=== PATIENT | female | born 1980 | race Caucasian/White ===

== ENCOUNTER → 2018-10-19 | Outpatient (CLI) | payer BC | END | disposition home or self-care (01) | LOC: CVU 09:38 | PROVIDERS: ATTEND Internal Medicine Cardiovascular Disease | DX: R42 Dizziness and giddiness (principal); R00.2 Palpitations | CPT/HCPCS: 0399T; 93306 ==

== ENCOUNTER → 2020-02-14 | Outpatient (CLI) | payer BC ==
[~2020-02-14] MED LIST: FLUO20CA19 PO; LITH600C PO; MONT10TA6 PO; NORE0.3547 PO; OMEP-110 PO
[2020-02-14 15:17] LABS: BASOPHILS # (AUTO) 0.02 x10^3/uL (0-0.1); BASOPHILS % (AUTO) 0 % (0-1); EOSINOPHILS # (AUTO) 0.19 x10^3/uL (0-0.4); EOSINOPHILS % (AUTO) 3 % (1-7); LYMPHOCYTES # (AUTO) 2.43 x10^3/uL (1-3.4); LYMPHOCYTES % (AUTO) 33 % (22-44); MD NO; MEAN CORPUSCULAR HEMOGLOBIN 27.7 pg (27.0-34.8); MEAN CORPUSCULAR HGB CONC 32.1 g/dL (32.4-35.8); MEAN CORPUSCULAR VOLUME 86.3 fL (80-100); MEAN PLATELET VOLUME 8.3 fL (7.4-10.4); MONOCYTES # (AUTO) 0.46 x10^3/uL (0.2-0.8); MONOCYTES % (AUTO) 6 % (2-9); NEUTROPHILS # (AUTO) 4.31 x10^3/uL (1.8-6.8); NEUTROPHILS % (AUTO) 58 % (42-75); PLATELET COUNT 242 x10^3/uL (130-400); RED CELL DISTRIBUTION WIDTH 16.7 % (9.6-15.2)
[2020-02-14 15:29] LABS: ALANINE AMINOTRANSFERASE 20 U/L (12-78); ALBUMIN 3.6 g/dL (3.4-5.0); ANION GAP 3 mmol/L (5-15); CHLORIDE 109 mmol/L (98-107); CREATININE 0.89 mg/dL (0.55-1.02)
[2020-02-14 15:34] LABS: ALKALINE PHOSPHATASE 98 U/L (45-117); BILIRUBIN,TOTAL 0.3 mg/dL (0.2-1.0); TOTAL PROTEIN 7.7 g/dL (6.4-8.2)
== END | disposition home or self-care (01) ==
LOC: STAR 14:16
PROVIDERS: ATTEND Obstetrics & Gynecology
DX: Z01.818 Encounter for other preprocedural examination (principal); N80.9 Endometriosis, unspecified
CPT/HCPCS: 36415; 80053; 84703; 85025

== ENCOUNTER 2020-02-23 10:30 | Day surgery (SDC) | payer BC ==
[~2020-02-23] VITALS: Ht 165.1 cm; Wt 89.0 kg
[2020-02-23] MEDS ORDERED: CHLORHEXIDINE 15 ML UDC MM STA (10:44)
[2020-02-23] MEDS ORDERED: LACTATED RINGERS 1,000 ML IV SCH (10:44)
[2020-02-23] MEDS ORDERED: CHLORHEXIDINE 15 ML UDC ONE (10:55)
[2020-02-23 11:17] LABS: HCG UR SG 1.033 (1.003-1.030)
[2020-02-23] MEDS ORDERED: BUPIVACAINE/PF-EPI 0.25% 1:200K ONE (11:22)
[2020-02-23] MEDS ORDERED: SCOPOLAMINE 1MG PATCH TD ONE (12:21)
[2020-02-23] MEDS ORDERED: GABAPENTIN 300 MG CAPSULE ONE (12:21)
[2020-02-23] MEDS ORDERED: ACETAMINOPHEN 500 MG TABLET ONE (12:21)
[2020-02-23] MEDS ORDERED: MIDAZOLAM 1 MG/ML, 2ML ONE (12:28)
[2020-02-23] MEDS ORDERED: FENTANYL PF 250 MCG/5ML ONE (12:28)
[2020-02-23] MEDS ORDERED: OXYcodone 5 MG/5 ML ORAL.SOL UDC PO PRN (13:00)
[2020-02-23] MEDS ORDERED: hydrALAzine 20 MG/ML, 1ML IV PRN (13:00)
[2020-02-23] MEDS ORDERED: HYDROmorphone 2 MG/ML, 1ML IVPush PRN (13:00)
[2020-02-23] MEDS ORDERED: ALBUTEROL SULFATE 2.5 MG/3 ML NPPB PRN (13:00)
[2020-02-23] MEDS ORDERED: LABETALOL 5MG/ML, 20ML IV PRN (13:00)
[2020-02-23] MEDS ORDERED: DIAZEPAM 5 MG/ML, 2ML IVPush PRN (13:00)
[2020-02-23] MEDS ORDERED: MEPERIDINE/PF 25MG/0.5ML IVPush PRN (13:00)
[2020-02-23] MEDS ORDERED: PROMETHAZINE 25 MG/ML, 1ML IV PRN (13:00)
[2020-02-23] MEDS: FENTANYL PF 100 MCG/2ML IV PRN ×2 (14:16→14:25)
[2020-02-23] MEDS ORDERED: OXYcodone 5 MG/5 ML ORAL.SOL UDC ONE (14:16)
[2020-02-23] MEDS ORDERED: FENTANYL PF 100 MCG/2ML ONE (14:16)
[2020-02-23] MEDS ORDERED: PROPOFOL 10 MG/ML, 20ML ONE (14:28)
[2020-02-23] MEDS ORDERED: ONDANSETRON 2MG/ML, 2ML ONE ×2 (14:28→14:32)
[2020-02-23] MEDS ORDERED: ROCURONIUM 10MG/ML,5ML ONE (14:28)
[2020-02-23] MEDS ORDERED: DEXAMETHASONE 4 MG/ML, 1ML ONE (14:28)
[2020-02-23] MEDS ORDERED: CEFAZOLIN 1,000 MG ONE (14:28)
[2020-02-23] MEDS ORDERED: SUCCINYLCHOLINE 20 MG/ML, 10ML ONE (14:28)
[2020-02-23] MEDS ORDERED: GLYCOPYRROLATE 0.2MG/1ML, 5ML ONE (14:28)
[2020-02-23] MEDS ORDERED: NEOSTIGMINE 1 MG/ML, 10ML ONE (14:28)
== END 2020-02-23 16:35 | disposition home or self-care (01) ==
LOC: OUT 10:30
PROVIDERS: ATTEND Obstetrics & Gynecology
DX: R10.2 Pelvic and perineal pain (principal); Z11.59 Encounter for screening for other viral diseases; N80.3 Endometriosis of pelvic peritoneum; N83.11 Corpus luteum cyst of right ovary; N83.291 Other ovarian cyst, right side; N83.8 Other noninflammatory disorders of ovary, fallopian tube and broad ligament; R30.0 Dysuria; N73.6 Female pelvic peritoneal adhesions (postinfective); N30.10 Interstitial cystitis (chronic) without hematuria; F32.9 Major depressive disorder, single episode, unspecified; F41.9 Anxiety disorder, unspecified; Z79.899 Other long term (current) drug therapy; Z88.2 Allergy status to sulfonamides; Z88.5 Allergy status to narcotic agent; Z88.6 Allergy status to analgesic agent; Z90.49 Acquired absence of other specified parts of digestive tract; Z98.84 Bariatric surgery status; Z98.890 Other specified postprocedural states
CPT/HCPCS: 36415; 58662; 81025; 87635; 88304; J0330; J0690; J1100; J2250; J2405; J2704; J2710; J3010; J7120